=== PATIENT | male | born 1990 | race Caucasian/White ===

== ENCOUNTER 2020-04-12 08:53 | Emergency (ER) | payer BC ==
[~2020-04-12] VITALS: Ht 165.1 cm; Wt 79.4 kg
[~2020-04-12 08:53] MED LIST: AMO500 PO; BIA500 PO; COL100 PO; HYDROCODONE/ACE1 TA2 PO; LAC PO; PRI20 PO
[2020-04-12 09:04] VITALS: Ht 165.1 cm; Wt 79.4 kg
[2020-04-12 11:53] VITALS: BP 115/80
== END 2020-04-12 11:53 | disposition home or self-care (01) ==
LOC: ED 08:53
DX: G62.9 Polyneuropathy, unspecified (principal); M54.5 Low back pain